=== PATIENT | female | born 2000 | race Caucasian/White ===

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

== ENCOUNTER 2020-02-04 09:56 | Emergency (ER) | payer OTHER, SELFPAY ==
[2020-02-04 10:02] VITALS: BP 120/66; PULSE 122; RESP 20; TEMP 37.2; O2SAT 100
--- NOTE | 2020-02-04 10:08 | ED.URI ---
HPI - URI/Sore Throat General Chief Complaint: Upper Respiratory Infection Stated Complaint: sore throat/ear pain Time Seen by Provider: 02/04/20 10:09 Source: patient and RN notes reviewed Mode of arrival: ambulatory Limitations: no limitations History of Present Illness HPI Narrative: 19-year-old female presents with concern for sore throat, chills, bilateral ear pain that started yesterday. Reports a history of strep infections. Reports taking Tylenol, however has difficulty swallowing pills because of her tonsil swelling. Denies any known sick contacts, denies loss of sense of taste or smell, nasal congestion, rhinorrhea MD elicited complaint: sore throat Related Data Home Medications Medication Instructions Recorded Confirmed escitalopram oxalate 10 mg PO DAILY 02/04/20 02/04/20 Allergies Allergy/AdvReac Type Severity Reaction Status Date / Time No Known Allergies Allergy Unknown Verified 02/04/20 10:09 Review of Systems Review of Systems: Narrative: CONSTITUTIONAL: Reports malaise, chills. Denies sweats, or fever. EYES: Denies visual changes, redness, or discharge. ENT: Denies rhinorrhea, congestion, sinus pain. Reports otalgia, swollen tonsils, and sore throat. CARDIOVASCULAR: Denies chest pain, palpitations, or edema. RESPIRATORY: Denies cough or dyspnea. GASTROINTESTINAL: Denies abdominal pain, nausea, vomiting, diarrhea SKIN: Denies rash or itching. MUSCULOSKELETAL: Denies myalgia. NEUROLOGIC: Denies headache. All systems reviewed & are unremarkable except as noted in HPI and below PMFSH Comments At time of signature, agree with nursing past medical, surgical, social and family history. There is no relevant family history pertinent to the presenting complaint Exam Narrative: Exam Narrative: GENERAL: Well-appearing, well-nourished, and in no acute distress. HEAD: Normocephalic EYES: PERRLA, conjunctivae clear ENT: Nares clear, turbinates e pink, no discharge. Mucous membranes moist. TM pearly nowak with sharp light reflex bilaterally; no tragal tenderness. Oropharynx erythematous without lesions. Tonsils enlarged, 3+, and without exudate, no drooling, no hoarseness, no trismus, uvula midline. NECK: Supple. No lymphadenopathy CHEST: Clear to auscultation, breath sounds equal. No wheezing, rhonchi, rales, or stridor. No respiratory distress, speaks in full sentences. HEART: Regular rate and rhythm. No murmur heard. SKIN: Warm, dry, no rash. NEURO: Alert and oriented x3. PSYCH: Normal mood and affect Course Course Emergency Course: Patient is aware of diagnosis, understands and agrees to treatment plan. Anticipatory guidance given. Patient agrees to follow-up as directed and is aware of reasons to seek care at the emergency department. Portions of this record may have been created with voice recognition software Vital Signs Vital signs: Vital Signs Temperature 99.0 F 02/04/20 10:02 Pulse Rate 122 H 02/04/20 10:02 Respiratory Rate 20 02/04/20 10:02 Blood Pressure 120/66 02/04/20 10:02 Pulse Oximetry 100 02/04/20 10:02 Temperature 99.0 F 02/04/20 10:02 Pulse Rate 122 H 02/04/20 10:02 Respiratory Rate 20 02/04/20 10:02 Blood Pressure 120/66 02/04/20 10:02 Pulse Oximetry 100 02/04/20 10:02 Reviewed. MDM - URI/Sore Throat MDM Narrative Medical decision making narrative: Differential diagnosis considered: Bains virus, strep pharyngitis, allergic rhinitis, upper respiratory tract infection, sinusitis, rhinosinusitis, nasopharyngitis. viral pharyngitis, otitis media, otitis externa, pneumonia, bronchitis, viral cough syndrome, viral syndrome, and influenza. Exam findings show no acute concerns or changes; patient is non-toxic appearing and is in no distress. Patient is appropriate for outpatient treatment and follow-up. Lab Data Attestation: I reviewed the patient's lab results. Labs: Strep Screen Positive Group A Strep *
[2020-02-04] MEDS: methylPREDNISolone SOD SUCC 125 MG VIAL IM (10:25)
== END 2020-02-04 10:46 | disposition home or self-care (01) ==
PROVIDERS: Emergency Provider Nurse Practitioner; PCP Pediatrics Adolescent Medicine
DX: J02.0 Streptococcal pharyngitis (principal)
CPT/HCPCS: 87880; 96372; 99213; G0463; J2930

== ENCOUNTER 2020-04-29 20:17 | Emergency (ER) | payer OTHER, SELFPAY ==
--- NOTE | ~2020-04-29 | CT_ITS ---
EXAMINATION: CT abdomen pelvis w con DATE: 04/29/2020 21:53 INDICATION: Left flank pain with fever TECHNIQUE: Computed tomography (CT) of the abdomen and pelvis was performed with 100 cc Omnipaque 350 intravenous contrast. The dose-length product was 208.05 mGy-cm. Automated exposure control and iter ative reconstruction technique were employed. COMPARISON: None. FINDINGS: Lung bases are unremarkable. Heart size is normal. No significant pleural or pericardial ef fusion. No significant vascular abnormality. No lymphadenopathy. There is mild thickening of the tonya shanti wall, although this could be due to underdistention. Cannot exclude gastritis. Moderate gas in th e colon. No evidence for obstruction. Fatty infiltration of the liver. There is splenomegaly. There is patchy hypoperfusion of the left kid moses, suspicious for pyelonephritis. There are bilateral ovarian cysts, largest in the left ovary lucius uring 3.4 cm. No significant free fluid. No free air. Gallbladder is present. No acute osseous abnorm ality. No acute osseous abnormality. IMPRESSION: 1. Patchy hypoperfusion of the left kidney, suspicious for pyelonephritis. 2: Bilateral ovarian cysts, largest in the left ovary measuring 3.4 cm. 3: Mild thickening of the gastric wall which may be due to underdistention or gastritis. 4: Splenomegaly. Reviewed, dictated and finalized at location A. ON PAPER INTERLEAFER IMPRESSION: 1. Patchy hypoperfusion of the left kidney, suspicious for pyelonephritis. 2: Bilateral ovarian cysts, largest in the left ovary measuring 3.4 cm. 3: Mild thickening of the gastric wall which may be due to underdistention or g astritis. 4: Splenomegaly.
[2020-04-29 20:30] VITALS: BP 110/70; PULSE 148; RESP 16; TEMP 38.7; O2SAT 100
--- NOTE | 2020-04-29 20:36 | ED.FEVER ---
HPI - Fever General Chief Complaint: Fever Stated Complaint: pinched nerve in back, fever Time Seen by Provider: 04/29/20 20:36 History of Present Illness HPI Narrative: Left low back pain for the past few days. Increasing severity, now severe and radiating to the LLQ and suprapubic region. She also developed a fever and nausea today. She does say that she feels mildly short of breath. No dysuria, hematuria, diarrhea, vaginal discharge, cough congestion. Related Data Home Medications Medication Instructions Recorded Confirmed escitalopram oxalate 10 mg PO DAILY 02/04/20 02/04/20 Allergies Allergy/AdvReac Type Severity Reaction Status Date / Time No Known Allergies Allergy Unknown Verified 04/29/20 20:51 Review of Systems Review of Systems: All systems reviewed & are unremarkable except as noted in HPI and below Constitutional: Constitutional: Reports chills, Reports fatigue and Reports fever(s) Eyes: Eyes: Reports no additional eye complaints ENT: Denies sore throat Cardiovascular: Cardiovascular: Denies chest pain Respiratory: Respiratory: Denies cough and Reports dyspnea Gastrointestinal: Gastrointestinal: Denies constipation, Denies diarrhea and Reports nausea Genitourinary: Genitourinary: Denies hematuria, Denies dysuria, Reports flank pain and Denies vaginal discharge Musculoskeletal: Musculoskeletal: Reports myalgias Neurologic: Denies dizziness and Denies weakness PMFSH Past Medical History Medical History (Updated 04/29/20 @ 23:47 by Austen Wallis MD) Healthy female adult Social History Social History (Updated 04/29/20 @ 21:32 by Austen Wallis MD) Smoking status: Never smoker Exam Const: General: alert and ill appearing acutely Nutritional Appearance: well nourished Orientation/consciousness: patient oriented x3 HENMT: Head: normal to inspection Neck: Neck: normal visual inspection Resp: Effort & Inspection: tachypneic Auscultation: clear to auscultation bilaterally Cardio: Rate: tachycardic Rhythm: regular rhythm GI: Inspection: non-distended GI Palp: Yes Soft to palpation, Yes Tenderness to palpation present (GI) (LLQ, suprapubic), Yes Guarding due to palpation present (GI), No Palpable mass present and No Rebound tenderness present Skin: General skin exam: normal color Neuro: General: patient oriented x3, moves all extremities, no meningeal signs, no focal motor deficits and CN's II-XI intact bilaterally Speech: normal speech Extrem: General: normal to inspection Course Vital Signs Vital signs: Vital Signs Temperature 38.7 C H 04/29/20 20:30 Pulse Rate 148 H 04/29/20 20:30 Respiratory Rate 16 04/29/20 20:30 Blood Pressure 110/70 04/29/20 20:30 Pulse Oximetry 100 04/29/20 20:30 Temperature 36.8 C 04/29/20 22:45 Pulse Rate 114 H 04/29/20 22:45 Respiratory Rate 24 H 04/29/20 22:45 Blood Pressure 108/70 04/29/20 22:45 Pulse Oximetry 100 04/29/20 22:45 MDM - Fever MDM Narrative Medical decision making narrative: She most likely has pyelonephritis. I will obtained CT and labs, and given Tylenol and fluids. CT suspicious for pyelonephritis. I discussed this with the patient and recommended admission. She said that she does not want to stay. Reevaluated after more fluids and toradol. Heart rate improved. Feeling much better. I think she is okay for discharge, although I did tell her that she may need to return if things are not improving. Differential Diagnosis Differential diagnosis: Likely gastroenteritis, community acquired pneumonia, pyelonephritis and sepsis Medical Records Attestation: I reviewed the patient's medical records. Lab Data Attestation: I reviewed the patient's lab results. Result diagrams: 04/29/20 21:01 04/29/20 20:59 Labs: Lab Results 04/29/20 04/29/20 04/29/20 Range/Units 20:59 20:59 21:01 WBC 15.5 H (4.5-10.0) K/mm3 RBC 4.61 (4.2-5.4) M/mm3 Hgb
[2020-04-29 20:49] VITALS: BP 117/80; PULSE 131; RESP 22; O2SAT 100
[2020-04-29] MEDS: SODIUM CHLORIDE 0.9% IV 1,000 ML 999 ML IV CONT ×2 (20:57→22:24)
[2020-04-29] MEDS: MORPHINE SULFATE (*CRX) 2 MG/ML INJ IV PUSH (20:58)
[2020-04-29 21:11] LABS: Basophils Percent Auto 0.1 % (0.2-1.2); Hematocrit 38.8 % (37.0-47.0); Hemoglobin 13.5 g/dL (12.0-15.0); Immature Granulocyte Absolute 0.08 K/mm3 (0.00-0.031); Immature Granulocyte Percent A 0.5 % (0-0.5); Lymphocytes Absolute Auto 0.64 K/mm3 (0.9-3.2); Lymphocytes Percent Auto 4.1 % (18.3-44.2); Mean Corpuscular HGB Conc 34.8 g/dl (32-36); Mean Corpuscular Hemoglobin 29.3 pg (26-34); Mean Corpuscular Volume 84.2 fl (80-100); Mean Platelet Volume 10.2 fl (7.4-10.4); Monocytes Absolute Auto 1.1 K/mm3 (0.1-0.6); Neutrophils Absolute Auto 13.7 K/mm3 (1.3-6.7); Neutrophils Percent Auto 88.3 % (45.5-73.1); Platelet Count Result 211 k/mm3 (150-375); Red Blood Count 4.61 M/mm3 (4.2-5.4); Red Cell Distribution Width 11.9 % (11.5-14.5); White Blood Count 15.5 K/mm3 (4.5-10.0)
[2020-04-29 21:29] LABS: Alanine Aminotransferase 10 U/L (4-35); Albumin Level 4.6 g/dL (3.7-5.6); Alkaline Phosphatase 59 U/L (45-116); Anion Gap 10 mmol/L (8-16); Aspartate Amino Transferase 20 U/L (14-36); Bilirubin,Total 0.6 mg/dL (0.2-1.3); Blood Urea Nitrogen 12 mg/dL (8-21); Carbon Dioxide 22 mmol/L (22-30); Chloride 102 mmol/L (98-107); Estimated CRCL calculation 73 ml/min; Estimated Glomerular Filt Rate > 60; Glucose 105 mg/dL (65-105); Potassium 3.6 mmol/L (3.4-5.0); Sodium 134 mmol/L (134-143)
--- NOTE | 2020-04-29 21:31 | PC.NURSE ---
RN at bedside to attempt straight cath. Minimal urine output, with blood present. UA and urine preg collected at this time.
[2020-04-29 21:33] VITALS: BP 104/69; PULSE 121; RESP 22; O2SAT 99
[2020-04-29 21:43] LABS: Bacteria Urine Trace /hpf; Mucus Urine Few /lpf; RBC Urine >75 /hpf (0-2); Squamous Epithelial Cell Urine Many /hpf (Few); WBC Clumps Urine Present /HPF; WBC Urine >75 /hpf
[2020-04-29 21:44] LABS: Add Urine Microscopic? YES; Appearance Urine Cloudy (Clear); Bilirubin Urine Negative (Negative); Blood Urine 3+ (Negative); Color Urine Yellow (Yellow); Glucose Urine UA Negative (Negative); Ketones Urine 2+ mg/dL (Negative); Leukocyte Esterase Ur Trace LEU/UL (Negative); Nitrate Urine Negative (Negative); Protein Urine 2+ mg/dL (Negative); Urobilinogen Urine Negative mg/dL (<2.0)
[2020-04-29 22:24] LABS: CRP 6.8 mg/dL (<1.0)
[2020-04-29 22:26] VITALS: BP 106/68; PULSE 113; RESP 22; O2SAT 99
[2020-04-29 22:45] VITALS: BP 108/70; PULSE 114; RESP 24; TEMP 36.8; O2SAT 100
[2020-04-29] MEDS: HYDROcodone/acetaminophen (*CRX) 5-325 MG TABLET 1 TAB PO (22:51)
[2020-04-29] MEDS: KETOROLAC 30 MG/ML VIAL (*BKC) IV PUSH (22:52)
[2020-04-30 00:24] VITALS: BP 103/75; PULSE 112; RESP 17; O2SAT 100
== END 2020-04-30 00:36 | disposition home or self-care (01) ==
PROVIDERS: Emergency Provider Emergency Medicine; PCP Pediatrics Adolescent Medicine
DX: N12 Tubulo-interstitial nephritis, not specified as acute or chronic (principal); R16.1 Splenomegaly, not elsewhere classified; N83.202 Unspecified ovarian cyst, left side; N83.201 Unspecified ovarian cyst, right side; R93.5 Abnormal findings on diagnostic imaging of other abdominal regions, including retroperitoneum
CPT/HCPCS: 36415; 51701; 74177; 80053; 81001; 81025; 83605; 85025; 86140; 87040; 87077; 87086; 87088; 87186; 96361; 96365; 96375; 99284; A9270; J0131; J0696; J1885; J2270; J7030; Q9967

== ENCOUNTER 2020-04-30 14:02 | Observation (INO) | payer OTHER, SELFPAY ==
[2020-04-30] VITALS (16 sets, daily range): BP systolic 90–117; BP diastolic 60–87; PULSE 103–133; RESP 15–229; TEMP 36.3–37.7; O2SAT 99–100; BMI 22.6
--- NOTE | ~2020-04-30 | XR_ITS ---
EXAMINATION: XR chest 1V portable 04/30/2020 15:58 INDICATION: Sepsis. Back pain. Shortness of breath. PROCEDURE: AP portable chest COMPARISON: 11/12/2014 FINDINGS: The lungs are clear. The cardiomediastinal silhouette is within normal limits. There are no pleural effusions. There is no pneumothorax suspected. IMPRESSION: 1: NO ACUTE CARDIOPULMONARY DISEASE. Reviewed, dictated and finalized at location A. TRICAL MANUFACTURING TECHNICIAN
[2020-04-30] MEDS: METOCLOPRAMIDE HCL INJ 10 MG/2 ML VIAL IV PUSH (14:47)
[2020-04-30] MEDS: SODIUM CHLORIDE 0.9% IV 1,000 ML 999 ML IV CONT ×2 (14:47→15:44)
[2020-04-30 14:54] LABS: Basophils Percent Auto 0.2 % (0.2-1.2); Eosinophils Absolute Auto 0.1 K/mm3 (0-0.3); Eosinophils Percent Auto 0.4 % (0-4.4); Hematocrit 33.2 % (37.0-47.0); Hemoglobin 11.5 g/dL (12.0-15.0); Immature Granulocyte Percent A 0.6 % (0-0.5); Lymphocytes Absolute Auto 1.16 K/mm3 (0.9-3.2); Lymphocytes Percent Auto 6.4 % (18.3-44.2); Mean Corpuscular HGB Conc 34.6 g/dl (32-36); Mean Corpuscular Hemoglobin 29.1 pg (26-34); Mean Corpuscular Volume 84.1 fl (80-100); Mean Platelet Volume 10.4 fl (7.4-10.4); Monocytes Absolute Auto 1.8 K/mm3 (0.1-0.6); Monocytes Percent Auto 9.7 % (2.6-8.5); Neutrophils Percent Auto 82.7 % (45.5-73.1); Platelet Count Result 162 k/mm3 (150-375); Red Blood Count 3.95 M/mm3 (4.2-5.4); Red Cell Distribution Width 11.6 % (11.5-14.5); White Blood Count 18.2 K/mm3 (4.5-10.0)
[2020-04-30 15:06] LABS: Alanine Aminotransferase 11 U/L (4-35); Albumin Level 3.9 g/dL (3.7-5.6); Alkaline Phosphatase 51 U/L (45-116); Anion Gap 13 mmol/L (8-16); Aspartate Amino Transferase 23 U/L (14-36); Bilirubin,Total 0.5 mg/dL (0.2-1.3); Blood Urea Nitrogen 11 mg/dL (8-21); Calcium 8.6 mg/dL (8.9-10.7); Carbon Dioxide 15 mmol/L (22-30); Chloride 105 mmol/L (98-107); Estimated Glomerular Filt Rate > 60; Glucose 100 mg/dL (65-105); Potassium 4.2 mmol/L (3.4-5.0); Sodium 133 mmol/L (134-143)
[2020-04-30 15:39] LABS: INR 1.3; Prothrombin Time 16.3 Seconds (11.1-14.7)
[2020-04-30 15:40] LABS: Partial Thromboplastin Time 36.5 SECONDS (22.3-36.8)
[2020-04-30 15:48] LABS: Lactic Acid Reflex 0.9 mmol/L (0.7-2.1)
--- NOTE | 2020-04-30 16:01 | ED.GENADULT ---
HPI - General Adult General Chief complaint: Nausea/Vomiting/Diarrhea Stated complaint: kidney infection Time Seen by Provider: 04/30/20 14:24 Source: patient Mode of arrival: ambulatory Limitations: no limitations History of Present Illness HPI narrative: Patient presents with chief complaint of worsening nausea and vomiting and left sided back pain. Patient was seen in the emergency department yesterday for the same symptoms but states they have now worsened. Patient was diagnosed with pyelonephritis and given antibiotics which she states she cannot take them as she has not been able to keep anything down including water on today. Patient reports feeling febrile but she has not documented her temperature. Patient reports back pain on the left side. Patient denies inability to urinate or pain with urination. Patient was offered admission on yesterday but did not want to stay in the hospital. Patient denies having a history of kidney stones or urinary tract infections. Patient denies having any chronic medical conditions. Related Data Home Medications Medication Instructions Recorded Confirmed escitalopram oxalate 10 mg PO DAILY 02/04/20 04/30/20 Allergies Allergy/AdvReac Type Severity Reaction Status Date / Time No Known Allergies Allergy Unknown Verified 04/29/20 20:51 Review of Systems Review of Systems: Narrative: CONSTITUTIONAL: Reports feeling feverish and chills and fatigue EYES: Denies visual changes, redness, or discharge. ENT: Denies rhinorrhea, congestion, sore throat, or otalgia. CARDIOVASCULAR: Denies chest pain, palpitations, or edema. RESPIRATORY: Denies cough or dyspnea. GASTROINTESTINAL: Reports nausea and vomiting denies diarrhea. GENITOURINARY: Denies dysuria or hematuria. SKIN: Denies rash or itching. MUSCULOSKELETAL: Reports left-sided back pain denies joint pain, or myalgia. NEUROLOGIC: Denies headache, numbness, dizziness, or weakness. PSYCHIATRIC: Denies anxiety or depression. [facility] Past Medical History Medical History (Updated 04/30/20 @ 18:39 by Walter Jefferson PA-C) Healthy female adult Social History Social History (Updated 04/29/20 @ 21:32 by Austen Wallis MD) Smoking status: Current every day smoker Tobacco type: e-cigarettes/vaping Second hand tobacco smoke exposure: Yes Alcohol intake: never Substance use: current Substance use type: marijuana Gender identity (if verbalized by the patient): Female Sexual Orientation (if Verbalized by the Patient): Straight or Heterosexual Spiritual care concerns: No Exam Narrative: Exam Narrative: GENERAL: Well-appearing, well-nourished. Patient appears ill-slightly diaphoretic. HEAD: Normocephalic, atraumatic. EYES: PERRLA and EOMI. ENT: Nares clear, no rhinorrhea or epistaxis. Mucous membranes mild- mod dry. Oropharynx without tonsillar hypertrophy exudate or other lesions. Bilateral TMs pearly nowak nonbulging NECK: Supple. No adenopathy or masses. CHEST: Clear to auscultation. No respiratory distress. No wheezes rales or rhonchi HEART: Tachycardia with regular rhythm. No murmur heard. Normal peripheral pulses. ABDOMEN: Soft, nontender, nondistended, normal active bowel sounds. Patient will not allow back or CVA exam. EXTREMITIES: Normal range of motion. No edema. SKIN: Warm, dry, no rash. NEURO: No focal deficits. Alert and oriented x3. PSYCH: Normal mood and affect. Course Vital Signs Vital signs: Vital Signs Temperature 100 F H 04/30/20 14:23 Pulse Rate 133 H 04/30/20 14:23 Respiratory Rate 34 H 04/30/20 14:23 Blood Pressure 115/87 04/30/20 14:23 Pulse Oximetry 100 04/30/20 14:23 Temperature 100 F H 04/30/20 14:23 Pulse Rate 113 H 04/30/20 17:00 Respiratory Rate 21 H 04/30/20 17:00 Blood Pressure 93/68 L 04/30/20 17:00 Pulse Oximetry 100 04/30/20 17:00 Medical Decision Making [facility] Narrative Medical decision making narrative: Patient's white blood cell count i
[2020-04-30] MEDS: HYDROmorphone HCL INJ (*CRX) 1 MG/ML SYR 0.5 MG IV PUSH (16:24)
--- NOTE | 2020-04-30 16:30 | PM.IMHP ---
H&P: HPI History of Present Illness Date/Time: 04/30/20 19:00 Chief Complaint: Nausea and vomiting. Narrative: This is a 19-year-old female with history of urinary tract infections who presented to the emergency department earlier this afternoon with complaints of worsening nausea and vomiting. For the last several days she has had an aching discomfort in her left lower back reading somewhat into the suprapubic region for which she was seen in the emergency department last evening. Urinalysis at that time was consistent with UTI and a CT of the abdomen and pelvis demonstrated findings of left-sided pyelonephritis. She was feeling better after IV fluids and she was able to be discharged home after receiving a dose of IV antibiotics. Unfortunately she continues to have fever, nausea, and vomiting and has not been able a hold down any food for a couple of days and thus she returned today. She is being admitted in this setting for further care. No known history of multidrug resistant organisms. She denies sinus congestion, rhinorrhea, otalgia, odynophagia, and diarrhea. No vaginal discharge or concerns for STIs. Review of Systems Review of Systems: Narrative: Twelve systems were reviewed with pertinent positives and negatives as per HPI. No exposure to those positive for COVID-19. She has felt mildly short of breath and has had a racing heart since feeling sick. Tylenol has not provided her with much benefit regards to discomfort. Last menstrual period was about a week and half ago. Except as documented, all other systems were reviewed and are negative. [facility] Past Medical History Medical History (Updated 04/30/20 @ 20:45 by Maria M Coffman PA-C) Nicotine dependence due to vaping tobacco product Urinary tract infection Surgical History Surgical History (Updated 04/30/20 @ 20:42 by Maria M Coffman PA-C) History of tympanostomy tube placement Family History Family History (Updated 04/30/20 @ 20:43 by Maria M Coffman PA-C) Father Diabetes mellitus Seizure disorder Sibling Autism Social History Social History (Updated 04/30/20 @ 20:44 by Maria M Coffman PA-C) Social History: Surrogate decision maker: Pham Scruggs, significant other. Code status: Full code. Smoking status: Current every day smoker Tobacco type: e-cigarettes/vaping Second hand tobacco smoke exposure: Yes Alcohol intake: never Substance use: current Substance use type: marijuana Additional living arrangements comments: Resides in [place] with her significant other and his child. 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 Gender identity (if verbalized by the patient): Female Sexual Orientation (if Verbalized by the Patient): Straight or Heterosexual Spiritual care concerns: No Meds Home Medications and Allergies Home Medications Medication Instructions Recorded Confirmed Type escitalopram oxalate 10 mg PO DAILY 02/04/20 04/30/20 History penicillin V potassium 500 mg PO Q12H 10 Days #20 tablet 02/04/20 04/30/20 Rx cefdinir 300 mg PO Q12H #14 cap 04/29/20 04/30/20 Rx hydrocodone-acetaminophen 1 tablet PO Q6H PRN #5 tablet 04/29/20 04/30/20 Rx ondansetron HCl [Zofran] 4 mg PO Q6H PRN #10 tablet 04/29/20 04/30/20 Rx Allergies Allergy/AdvReac Type Severity Reaction Status Date / Time No Known Allergies Allergy Unknown Verified 04/29/20 20:51 Vital Signs Vital Signs - 24 hr 04/30/20 14:23 04/30/20 14:51 04/30/20 15:00 Temperature 100 F H Pulse Rate 133 H 126 H 122 H Respiratory Rate 34 H 31 H 36 H Blood Pressure 115/87 104/69 Pulse Oximetry 100 100 100 04/30/20 15:01 04/30/20 15:15 04/30/20 15:40 Temperature Pulse Rate 120 H 132 H 110 H Respiratory Rate 33 H 229 H 20 Blood Pressure 103/64 Pulse Oximetry 100 100 100 04/30/20 15:57 04/30/20 16:09 04/30/20 16:15 Temperature Pulse Rate 119 H 116 H 110 H Respirato
[2020-04-30 16:42] LABS: CRP 21.4 mg/dL (<1.0)
--- NOTE | 2020-04-30 18:10 | ADMGEN ---
This patient, Kirsten Condon, was admitted to 3 Med Surg Room 302-01. Patient/family oriented to hospital policies and general routines including ID bracelet, bed and alarms, visiting hours, pain management, procedures, bathroom and other care routines, personal items, smoking policy, room service/diet, and visiting hours. Information on how to activate the Rapid Response Team has been discussed. Patient/Family are encouraged to report perceived risks to care and to ask questions if they do not understand what they are told or what they should do.
[2020-04-30] MEDS: ONDANSETRON INJ 4 MG/2 ML VIAL IV PUSH (20:55)
[2020-04-30 21:44] LABS: Anion Gap 9 mmol/L (8-16); Blood Urea Nitrogen 9 mg/dL (8-21); Carbon Dioxide 18 mmol/L (22-30); Chloride 110 mmol/L (98-107); Estimated CRCL calculation 106 ml/min; Estimated Glomerular Filt Rate > 60; Glucose 92 mg/dL (65-105); Magnesium 1.7 mg/dL (1.6-2.3); Potassium 4.1 mmol/L (3.4-5.0); Sodium 137 mmol/L (134-143)
[2020-04-30] MEDS: SODIUM CHLORIDE 0.9% IV 1,000 ML 100 ML IV CONT (22:42)
[2020-05-01 05:36] VITALS: BP 113/63; PULSE 125; RESP 18; TEMP 36.8; O2SAT 100
[2020-05-01 06:10] LABS: Hematocrit 31.3 % (37.0-47.0); Hemoglobin 10.6 g/dL (12.0-15.0); Mean Corpuscular HGB Conc 33.9 g/dl (32-36); Mean Corpuscular Hemoglobin 28.9 pg (26-34); Mean Corpuscular Volume 85.3 fl (80-100); Mean Platelet Volume 10.8 fl (7.4-10.4); Platelet Count Result 155 k/mm3 (150-375); Red Blood Count 3.67 M/mm3 (4.2-5.4); Red Cell Distribution Width 11.8 % (11.5-14.5); White Blood Count 12.8 K/mm3 (4.5-10.0)
[2020-05-01 06:28] LABS: Alanine Aminotransferase 10 U/L (4-35); Albumin Level 3.5 g/dL (3.7-5.6); Alkaline Phosphatase 46 U/L (45-116); Anion Gap 13 mmol/L (8-16); Aspartate Amino Transferase 23 U/L (14-36); Bilirubin,Total 0.3 mg/dL (0.2-1.3); Blood Urea Nitrogen 8 mg/dL (8-21); Calcium 8.6 mg/dL (8.9-10.7); Carbon Dioxide 14 mmol/L (22-30); Chloride 109 mmol/L (98-107); Estimated CRCL calculation 106 ml/min; Estimated Glomerular Filt Rate > 60; Glucose 82 mg/dL (65-105); Sodium 136 mmol/L (134-143)
--- NOTE | 2020-05-01 08:03 | ECG_ITS ---
Measurements Intervals Crane Rate: 113 P: 72 WI: 115 QRS: 74 QRSD: 78 T: -9 QT: 308 QTc: 423 Interpretive Statements SINUS TACHYCARDIA WITH SHORT WI INTERVAL NONSPECIFIC ST & T-WAVE ABNORMALITY- ANTEROLAT/INF LEADS ABNORMAL ECG Electronically Signed On 05-01-2020 9:07:31 SCOOPING MACHINE TENDER by Bharat Fletcher D.O.
[2020-05-01] MEDS: ESCITALOPRAM OXALATE 10 MG TABLET PO (08:15)
[2020-05-01 09:17] VITALS: O2SAT 99
[2020-05-01] MEDS: ONDANSETRON INJ 4 MG/2 ML VIAL IV PUSH (10:17)
[2020-05-01] MEDS: SODIUM CHLORIDE 0.9% IV 1,000 ML 100 ML IV CONT (10:21)
--- NOTE | 2020-05-01 13:16 | PM.IMPN ---
Progress Note: A&P Assessment and Plan (1) Sepsis: Code(s): A41.9 - Sepsis, unspecified organism Status: Acute Assessment and Plan: Supported by leukocytosis and tachycardia, both of which are improving -UTI/pyelonephritis appears to be the source -Continue ceftriaxone, await new blood cultures -Blood cultures from previous ER stay have NGTD -CO2 decreased, likely due to hyperventilation and not in the setting of severe infection/kidney disfunction. -Anion gap normal, lactic normal on admission -d/c in 1-2 days on oral abx when she is able to tolerate a diet and preliminary blood cultures have come back (2) Pyelonephritis: Code(s): N12 - Tubulo-interstitial nephritis, not specified as acute or chronic Status: Acute Assessment and Plan: Diagnosed with left-sided pyelonephritis -Continue ceftriaxone, urine cx growing ecoli (3) Dehydration: Code(s): E86.0 - Dehydration Status: Acute Assessment and Plan: Improving. Continue IV fluids due to vomiting with breakfast (4) Nicotine dependence due to vaping tobacco product: Code(s): F17.290 - Nicotine dependence, other tobacco product, uncomplicated Status: Acute Assessment and Plan: Recommend cessation of tobacco products including vaping. (5) Ovarian cyst: Code(s): N83.209 - Unspecified ovarian cyst, unspecified side Status: Acute Assessment and Plan: Likely due to menstrual cycle -Could also be causing the left sided pain -Follow up with pcp or MERCHANDISING LEAD at discharge Time Spent With Patient Time with patient: 25 - 35 minutes Subjective Date/time seen: 05/01/20 13:16 Interval history: Pt is a 19-year-old female here for pyelonephritis. Patient was seen today with visitor at bedside. Patient was seen today and states she is still unable to eat as she is very nauseated and has back pain. She threw up her breakfast today but was able to hold down a popsicle. She says she has been upset that she has been hospitalized and is hyperventilating and breathing fast. We reviewed breathing techniques. Pt denies fevers, chills, nightsweats, constipation, diarrhea, chest pain, sob, or abdominal pain. We dsicussed ways to prevent UTIs and she says she doesn't have UTIs very often. Review of Systems Review of Systems: All systems reviewed & are unremarkable except as noted in HPI and below Exam Narrative: Exam Narrative: General: Well developed well nourished patient in NAD HEENT: normocephalic Neck: supple Neuro: Alert and oriented x4 CV:slightly tachycardic on exam, 118. No murmurs. EKG reviewed, no significant abnormalities Resp:CTA but start hyperventilating when discussing plan of care Abd: Soft, non distended. Pain to palpation in the LLQ. CVA tenderness on the left flank. Positive bowel sounds Extremities: No swelling, erythema, or pain to palpation. Objective Data Vital Signs Vital Signs: Vital Signs - 24 hr 04/30/20 14:23 04/30/20 14:51 04/30/20 15:00 Temperature 100 F H Pulse Rate 133 H 126 H 122 H Respiratory Rate 34 H 31 H 36 H Blood Pressure 115/87 104/69 Pulse Oximetry 100 100 100 04/30/20 15:01 04/30/20 15:15 04/30/20 15:40 Temperature Pulse Rate 120 H 132 H 110 H Respiratory Rate 33 H 229 H 20 Blood Pressure 103/64 Pulse Oximetry 100 100 100 04/30/20 15:57 04/30/20 16:09 04/30/20 16:15 Temperature Pulse Rate 119 H 116 H 110 H Respiratory Rate 24 H 39 H 27 H Blood Pressure 97/60 L Pulse Oximetry 100 100 100 04/30/20 16:28 04/30/20 16:30 04/30/20 16:45 Temperature Pulse Rate 108 H 107 H 127 H Respiratory Rate 21 H 15 27 H Blood Pressure 96/71 L 90/61 L Pulse Oximetry 100 100 100 04/30/20 16:51 04/30/20 16:53 04/30/20 17:00 Temperature Pulse Rate 103 H 113 H Respiratory Rate 20 21 H Blood Pressure 90/61 L 93/68 L Pulse Oximetry 99 100 04/30/20 22:00 05/01/20 05:36 05/01/20 09:17 Te
[2020-05-01 14:00] VITALS: BP 116/60; PULSE 90; RESP 16; TEMP 36.6; O2SAT 100
[2020-05-01 14:05] LABS: Monoscreen Negative (Negative); Negative Monotest Control Negative (Negative); Positive Monotest Control Positive (Positive)
[2020-05-01] MEDS: PANTOPRAZOLE 40 MG TABLET PO (14:24)
[2020-05-01 15:08] LABS: Anion Gap 14 mmol/L (8-16); Blood Urea Nitrogen 8 mg/dL (8-21); Calcium 8.9 mg/dL (8.9-10.7); Carbon Dioxide 11 mmol/L (22-30); Chloride 112 mmol/L (98-107); Estimated CRCL calculation 106 ml/min; Estimated Glomerular Filt Rate > 60; Glucose 89 mg/dL (65-105); Potassium 4.4 mmol/L (3.4-5.0); Sodium 137 mmol/L (134-143)
[2020-05-01] MEDS: LACTATED RINGERS 1,000 ML 100 ML IV CONT (16:19)
[2020-05-01 20:00] VITALS: PULSE 98; RESP 18; O2SAT 100
[2020-05-01 21:56] VITALS: BP 126/83; PULSE 98; RESP 18; TEMP 36.8; O2SAT 100
[2020-05-02] MEDS: LACTATED RINGERS 1,000 ML 100 ML IV CONT (03:19)
[2020-05-02 05:35] VITALS: BP 123/57; PULSE 87; RESP 18; TEMP 36.7; O2SAT 100
[2020-05-02 06:04] LABS: Basophils Percent Auto 0.3 % (0.2-1.2); Eosinophils Percent Auto 0.6 % (0-4.4); Hematocrit 34.3 % (37.0-47.0); Hemoglobin 11.8 g/dL (12.0-15.0); Immature Granulocyte Absolute 0.03 K/mm3 (0.00-0.031); Immature Granulocyte Percent A 0.4 % (0-0.5); Lymphocytes Absolute Auto 1.41 K/mm3 (0.9-3.2); Lymphocytes Percent Auto 19.4 % (18.3-44.2); Mean Corpuscular HGB Conc 34.4 g/dl (32-36); Mean Corpuscular Hemoglobin 28.9 pg (26-34); Mean Corpuscular Volume 84.1 fl (80-100); Mean Platelet Volume 10.7 fl (7.4-10.4); Monocytes Absolute Auto 0.9 K/mm3 (0.1-0.6); Monocytes Percent Auto 12.7 % (2.6-8.5); Neutrophils Absolute Auto 4.8 K/mm3 (1.3-6.7); Neutrophils Percent Auto 66.6 % (45.5-73.1); Platelet Count Result 161 k/mm3 (150-375); Red Blood Count 4.08 M/mm3 (4.2-5.4); Red Cell Distribution Width 11.8 % (11.5-14.5); White Blood Count 7.3 K/mm3 (4.5-10.0)
[2020-05-02 06:29] LABS: Anion Gap 10 mmol/L (8-16); Blood Urea Nitrogen 9 mg/dL (8-21); Calcium 8.9 mg/dL (8.9-10.7); Carbon Dioxide 18 mmol/L (22-30); Chloride 109 mmol/L (98-107); Estimated CRCL calculation 92 ml/min; Estimated Glomerular Filt Rate > 60; Glucose 82 mg/dL (65-105); Potassium 3.7 mmol/L (3.4-5.0); Sodium 137 mmol/L (134-143)
[2020-05-02] MEDS: ESCITALOPRAM OXALATE 10 MG TABLET PO (08:50)
[2020-05-02] MEDS: PANTOPRAZOLE 40 MG TABLET PO (08:50)
--- NOTE | 2020-05-02 11:59 | PM.DS ---
DS: Admitting Diagnosis Admitting Diagnosis Admitting Diagnosis: Pyelonephritis DS: Discharge Diagnosis Discharge Diagnosis (1) Sepsis: Code(s): A41.9 - Sepsis, unspecified organism Status: Acute Assessment and Plan: Present on admission and supported by leukocytosis and tachycardia with source of infection being pyelonephritis. She was treated with IV Ceftriaxone and will continue with Cefdinir to complete a total of 14 days of antibiotic therapy. Blood cultures negative. Lactic normal on admission. CO2 decreased likely due to hyperventilation and not felt to be related to infection/kidney dysfunction, which improved. Leukocytosis and tachycardia resolved. (2) Pyelonephritis: Code(s): N12 - Tubulo-interstitial nephritis, not specified as acute or chronic Status: Acute Assessment and Plan: Diagnosed with left-sided pyelonephritis based on clinical findings and CT a/p which showed patchy hypoperfusion of left kidney consistent with pyelonephritis. Urine culture grew 50-100,000 CFU E. coli. Continue PO Cefdinir to complete 14 days of antibiotic therapy. (3) Dehydration: Code(s): E86.0 - Dehydration Status: Acute Assessment and Plan: Improving with IV fluid rehydration (4) Nicotine dependence due to vaping tobacco product: Code(s): F17.290 - Nicotine dependence, other tobacco product, uncomplicated Status: Acute Assessment and Plan: She was educated on smoking cessation including vaping for 3 minutes. (5) Ovarian cyst: Code(s): N83.209 - Unspecified ovarian cyst, unspecified side Status: Acute Assessment and Plan: Likely due to menstrual cycle. CT showed bilateral ovarian cysts, largest in left ovary measuring 3.4 cm. Follow up with OCCUPATIONAL SAFETY SPECIALIST or PCP. DS: Summary Hospital Course Reason for hospitalization: Pyelonephritis Hospital Course: Date of admission: 04/30/2020 Date of discharge: 05/02/2020 Kirsten Condon is a 19-year-old female with history of urinary tract infections and nicotine dependence to to vaping who presented to the emergency department on 04/30/2020 with complaints of nausea/vomiting and left-sided back pain. She had been in the emergency department 1 day prior and diagnosed with pyelonephritis. She was started on p.o. antibiotics, but unfortunately her nausea/vomiting persisted and she was not able to keep down food or liquids. Upon presentation, she was tachycardic in the 130s, temperature of 100?, additional vital signs stable, WBC 18.2, H&H slightly decreased, electrolytes stable, and lactic 0.9. She was admitted to the hospitalist service for further evaluation and management. Please see above for further details. She was rehydrated with IV fluids and treated with IV antibiotics. She demonstrated significant improvement will continue with p.o. antibiotics as an outpatient. Given her overall improvement, she was determined to no longer require inpatient care and felt to be stable for discharge. She was comfortable with return home. We discussed worrisome signs and symptoms for which to return and she was educated on her medications. She was discharged hemodynamically stable condition on 05/02/2020. Time spent discussing smoking cessation with patient: 3 to 10 minutes Status at Discharge Functional status at discharge: independent ambulation Overall status at discharge: patient is back to baseline Time Spent with Patient Time attestation: Total time spent providing and/or coordinating discharge services: 45 minutes Time spent: Greater than 30 minutes Exam Narrative: Exam Narrative: Ms. Condon is a well-nourished, well-appearing 19-year-old female who is lying supine in bed. She appears comfortable and is in NARD. Neuro: awake, alert and oriented x4, speech clear, no focal neuro deficits noted HEENMT: normocephalic, atraumatic, EOMI, sclerae anicteric, moist oral mucosa, tongue midline, n
== END 2020-05-02 12:55 | disposition home or self-care (01) ==
LOC: ANHED 16:20 → ANH3MEDSUR 16:42
PROVIDERS: Physician Assistant; Admitting Provider Family Medicine; Emergency Provider Emergency Medicine; PCP Pediatrics Adolescent Medicine; Visit Provider Physician Assistant
DX: A41.9 Sepsis, unspecified organism (principal); N12 Tubulo-interstitial nephritis, not specified as acute or chronic; B96.20 Unspecified Escherichia coli [E. coli] as the cause of diseases classified elsewhere; E86.0 Dehydration; F17.290 Nicotine dependence, other tobacco product, uncomplicated; N83.209 Unspecified ovarian cyst, unspecified side
CPT/HCPCS: 36415; 71045; 80048; 80053; 83605; 83735; 85025; 85027; 85610; 85730; 86140; 86308; 87040; 93005; 96361; 96365; 96367; 96375; 99285; A9270; G0378; G0379; J0131; J0696; J1170; J2405; J2765; J7030; J7120

== ENCOUNTER 2020-08-21 12:15 | Emergency (ER) | payer OTHER, SELFPAY ==
[2020-08-21 12:18] VITALS: BP 102/71; PULSE 77; RESP 16; TEMP 36.5; O2SAT 100
[2020-08-21 12:35] LABS: Basophils Percent Auto 0.2 % (0.2-1.2); Eosinophils Percent Auto 0.4 % (0-4.4); Hemoglobin 12.5 g/dL (12.0-15.0); Immature Granulocyte Absolute 0.03 K/mm3 (0.00-0.031); Immature Granulocyte Percent A 0.3 % (0-0.5); Lymphocytes Absolute Auto 1.62 K/mm3 (0.9-3.2); Lymphocytes Percent Auto 16.8 % (18.3-44.2); Mean Corpuscular HGB Conc 33.8 g/dl (32-36); Mean Corpuscular Hemoglobin 28.3 pg (26-34); Mean Corpuscular Volume 83.9 fl (80-100); Mean Platelet Volume 10.5 fl (7.4-10.4); Monocytes Absolute Auto 0.5 K/mm3 (0.1-0.6); Monocytes Percent Auto 4.8 % (2.6-8.5); Neutrophils Absolute Auto 7.5 K/mm3 (1.3-6.7); Neutrophils Percent Auto 77.5 % (45.5-73.1); Platelet Count Result 222 k/mm3 (150-375); Red Blood Count 4.41 M/mm3 (4.2-5.4); Red Cell Distribution Width 12.4 % (11.5-14.5); White Blood Count 9.7 K/mm3 (4.5-10.0)
[2020-08-21] MEDS: SODIUM CHLORIDE 0.9% IV 1,000 ML 999 ML IV CONT (12:41)
[2020-08-21 12:42] LABS: Add Urine Microscopic? YES; Amorphous Sediment Urine Few; Appearance Urine Cloudy (Clear); Bacteria Urine Trace /hpf; Bilirubin Urine Negative (Negative); Blood Urine Negative (Negative); Color Urine Yellow (Yellow); Glucose Urine UA Negative (Negative); Ketones Urine 1+ mg/dL (Negative); Leukocyte Esterase Ur 3+ LEU/UL (Negative); Mucus Urine Few /lpf; Nitrate Urine Negative (Negative); Protein Urine 2+ mg/dL (Negative); Specific Grav Ur 1.018 (1.001-1.035); Squamous Epithelial Cell Urine Many /hpf (Few); Urobilinogen Urine Negative mg/dL (<2.0); WBC Urine 31-50 /hpf
[2020-08-21 12:45] LABS: Alanine Aminotransferase 33 U/L (4-35); Albumin Level 4.6 g/dL (3.5-5.1); Alkaline Phosphatase 42 U/L (38-126); Anion Gap 11 mmol/L (8-16); Aspartate Amino Transferase 23 U/L (14-36); Bilirubin,Total 0.2 mg/dL (0.2-1.3); Blood Urea Nitrogen 5 mg/dL (7-17); Calcium 9.4 mg/dL (8.4-10.2); Carbon Dioxide 21 mmol/L (22-30); Chloride 106 mmol/L (98-107); Estimated CRCL calculation 124 ml/min; Estimated Glomerular Filt Rate > 60; Glucose 97 mg/dL (65-105); Lipase 111 U/L (23-300); Potassium 3.8 mmol/L (3.4-5.0); Sodium 138 mmol/L (137-145)
--- NOTE | 2020-08-21 13:04 | ED.FEMALEGU ---
HPI - Female Genitourinary General Chief complaint: Nausea/Vomiting/Diarrhea Stated complaint: Nausea/vomiting/8 weeks Time Seen by Provider: 08/21/20 12:34 Source: patient Mode of arrival: ambulatory Limitations: no limitations History of Present Illness HPI Narrative: Patient is a 20-year-old female complaining of nausea and vomiting that started today. Patient states that she is 8 weeks , has had care. Patient denies any abdominal pain, pelvic pain, vaginal bleeding, vaginal discharge, fever, chills or urinary symptoms. Related Data Home Medications Medication Instructions Recorded Confirmed PNV no.[id number] tablet PO 08/21/20 [ Gummies] metoclopramide HCl 08/21/20 Allergies Allergy/AdvReac Type Severity Reaction Status Date / Time No Known Allergies Allergy Unknown Verified 08/21/20 12:26 Review of Systems Review of Systems: All systems reviewed & are unremarkable except as noted in HPI and below Constitutional: Constitutional: Denies body ache(s), Denies chills, Denies excessive sweating, Denies fatigue, Denies fever(s), Denies headache(s), Denies lethargy, Denies malaise, Denies weakness and Denies weight loss Eyes: Eyes: Denies blurry vision, Denies change in vision and Denies loss of vision ENT: Denies dizziness, Denies ear discharge, Denies headache(s), Denies lip swelling, Denies epistaxis, Denies nasal congestion, Denies neck pain, Denies throat swelling and Denies tongue swelling Cardiovascular: Cardiovascular: Denies chest pain, Denies chest pain at rest, Denies chest pain with activity, Denies diaphoresis, Denies rapid heart rate, Denies edema, Denies irregular heart rhythm, Denies lightheadedness, Denies palpitations, Denies dyspnea and Denies dyspnea on exertion Respiratory: Respiratory: Denies chest congestion, Denies cough, Denies hemoptysis, Denies dyspnea and Denies dyspnea on exertion Gastrointestinal: Gastrointestinal: Denies abdominal pain, Denies melena, Denies hematochezia, Denies diarrhea, Reports nausea, Reports vomiting and Denies hematemesis Musculoskeletal: Musculoskeletal: Denies abnormal gait, Denies deformity, Denies joint swelling, Denies limited range of motion, Denies neck pain and Denies numbness Neurologic: Denies Abnormal speech present, Denies abnormal gait, Denies confusion, Denies dizziness, Denies headache(s), Denies focal weakness, Denies loss of vision, Denies numbness, Denies Other visual disturbances, Denies Sensory deficit (Neuro) and Denies weakness Psychiatric: Psychiatric: Denies confusion, Denies depression, Denies auditory hallucinations, Denies homicidal ideation and Denies suicidal ideation Endocrine: Endocrine: Denies cold intolerance, Denies excessive sweating, Denies fatigue, Denies heat intolerance and Denies palpitations Hematologic/Lymphatic: Hematologic/Lymphatic: Denies easy bleeding and Denies easy bruising Allergic/Immunologic: Allergic/Immunologic: Denies lip swelling, Denies throat swelling and Denies tongue swelling PMFSH Past Medical History Medical History Nicotine dependence due to vaping tobacco product Urinary tract infection Surgical History Surgical History History of tympanostomy tube placement Family History Family History Father Diabetes mellitus Seizure disorder Sibling Autism Social History Social History Social History: Surrogate decision maker: Pham Scruggs, significant other. Code status: Full code. Smoking status: Current every day smoker Tobacco type: e-cigarettes/vaping Second hand tobacco smoke exposure: Yes Alcohol intake: never Substance use: current Substance use type: marijuana Additional living arrangements comments: Resides in
[2020-08-21] MEDS: PROMETHAZINE HCL 25 MG/ML AMPUL 12.5 MG IV PUSH (13:28)
[2020-08-21 14:19] VITALS: BP 110/78; PULSE 69; RESP 18; O2SAT 100
== END 2020-08-21 14:20 | disposition home or self-care (01) ==
PROVIDERS: Emergency Medicine; Emergency Provider Emergency Medicine; PCP Pediatrics Adolescent Medicine
DX: O23.41 Unspecified infection of urinary tract in pregnancy, first trimester (principal); O21.0 Mild hyperemesis gravidarum; Z3A.08 8 weeks gestation of pregnancy
CPT/HCPCS: 36415; 80053; 81001; 81025; 83690; 84702; 85025; 87077; 87086; 87088; 87186; 96361; 96374; 99284; J2550; J7030

== ENCOUNTER 2021-01-31 12:21 | Observation (INO) | payer OTHER, SELFPAY ==
[2021-01-31] VITALS (10 sets, daily range): BP systolic 117; BP diastolic 72; PULSE 40–112; RESP 20; O2SAT 80–100; BMI 25.6
--- NOTE | 2021-01-31 12:50 | OBADM ---
This patient, Kirsten Condon, admitted to the OB room OB Post 113 for observation. Patient/family oriented to hospital policies and general routines including ID bracelet, bed and alarms, pain management, procedures, bathroom and other care routines, personal items, smoking policy, room service/diet, call light and visiting hours. Patient/Family are encouraged to report perceived risks to care and to ask questions if they do not understand what they are told or what they should do.
--- NOTE | 2021-01-31 13:20 | PC.NURSE ---
Pt ambulates to OB with complaints of contractions that started last night that were so painful she passed out. She states she is not breathing right , back pain, dizziness and had a UTI before she was , then admitted for dehydration earlier in this . This morning pt started her day quickly going from the bed to washing the dishes within five min without eating food, minimal fluid intake and became dizzy. RN encouraged PO hydration. After 30 min pt had minimal fluid intake and had been on her phone. RN encouraged PO hydration.
[2021-01-31 13:32] LABS: Add Urine Microscopic? YES; Appearance Urine Clear (Clear); Bilirubin Urine Negative (Negative); Blood Urine Negative (Negative); Color Urine Yellow (Yellow); Glucose Urine UA Negative (Negative); Ketones Urine Trace mg/dL (Negative); Leukocyte Esterase Ur Negative LEU/UL (NEGATIVE); Mucus Urine Rare /lpf; Nitrate Urine Negative (Negative); Protein Urine Negative (Negative); RBC Urine 0-2 /hpf (0-2); Specific Grav Ur 1.017 (1.001-1.035); Squamous Epithelial Cell Urine Many /hpf (Few); Urobilinogen Urine Negative mg/dL (<2.0); WBC Urine 0-3 /hpf (0-3)
--- NOTE | 2021-01-31 14:00 | PC.NURSE ---
Pt states she drank the water too fast and threw it up. Discussed the option of putting in an IV for fluid, nausea medication and tylenol. Pt declines everything and opts to continue drinking fluid. Pt states she hasn't eaten today and would like some crackers to eat and declines other food at this time. Pt feels the urged to have a bowel movement. She had a BM earlier today and responds that they are normal not loose or constipated.
--- NOTE | 2021-01-31 14:27 | PC.NURSE ---
1424 pt sat straight up to eat a variety of snacks. Abdomen remains soft.
--- NOTE | 2021-02-03 12:05 | P.PNOB_ITS ---
OB - Triage/Final Diagnosis Visit Information Comments/Additional reasons for admission: I have assessed the risk for this patient, Kirsten Condon, and determined that she would benefit from observation care. Evaluation Laboratory results: Laboratory Tests 01/31/21 13:15 Urine Color Yellow Urine Appearance Clear Urine pH 7.0 Ur Specific [place] 1.017 Urine Protein Negative Urine Glucose (UA) Negative Urine Ketones Trace Ur Blood (Man) Negative Urine Nitrate Negative Urine Bilirubin Negative Urine Urobilinogen Negative Ur Leukocyte Esterase Negative Urine RBC 0-2 Urine WBC 0-3 Ur Squamous Epith Cells Many H Urine Mucus Rare Final Diagnosis (1) Abdominal pain affecting : Code(s): O26.899 - Other specified related conditions, unspecified trimester; R10.9 - Unspecified abdominal pain Status: Acute
== END 2021-01-31 15:28 | disposition home or self-care (01) ==
PROVIDERS: Admitting Provider Obstetrics & Gynecology; Visit Provider Obstetrics & Gynecology
DX: O26.893 Other specified pregnancy related conditions, third trimester (principal); R10.9 Unspecified abdominal pain; Z3A.32 32 weeks gestation of pregnancy
CPT/HCPCS: 81001; 87086; G0378; G0379

== ENCOUNTER 2021-02-01 16:05 | Observation (INO) | payer OTHER, SELFPAY ==
[2021-02-01 16:10] VITALS: RESP 20; TEMP 36.7
[2021-02-01 16:28] VITALS: BP 97/82; PULSE 98
[2021-02-01 16:31] VITALS: BP 113/75; PULSE 101
[2021-02-01] MEDS: LACTATED RINGERS 1,000 ML 999 ML IV CONT (16:32)
--- NOTE | 2021-02-03 16:26 | PM.OBTRLD ---
OB - Triage/Final Diagnosis Visit Information Comments/Additional reasons for admission: I have assessed the risk for this patient, Kirsten Condon, and determined that she would benefit from observation care. Final Diagnosis (1) Abdominal pain affecting : Code(s): O26.899 - Other specified related conditions, unspecified trimester; R10.9 - Unspecified abdominal pain Status: Acute
== END 2021-02-01 18:21 | disposition home or self-care (01) ==
PROVIDERS: Admitting Provider Obstetrics & Gynecology; Visit Provider Obstetrics & Gynecology
DX: O26.893 Other specified pregnancy related conditions, third trimester (principal); R10.9 Unspecified abdominal pain; Z3A.32 32 weeks gestation of pregnancy
CPT/HCPCS: 96360; G0378; G0379; J7120

== ENCOUNTER 2021-03-08 20:45 | Outpatient (CLI) | payer OTHER, SELFPAY | END 2021-03-08 21:34 | disposition home or self-care (01) | LOC: ANHOBOP 21:30 | PROVIDERS: Visit Provider Obstetrics & Gynecology | DX: O41.8X90 Other specified disorders of amniotic fluid and membranes, unspecified trimester, not applicable or unspecified (principal); Z3A.00 Weeks of gestation of pregnancy not specified | CPT/HCPCS: 84112 ==

== ENCOUNTER 2021-03-12 10:37 | Outpatient (RCR) | payer OTHER, SELFPAY ==
--- NOTE | ~2021-03-12 | US_ITS ---
EXAMINATION: US OB BPP wo non-stress EXAM DATE: 03/12/2021 11:55 INDICATION: Small for gestational age. 3rd trimester. TECHNIQUE: Pelvic obstetrical transabdominal sonogram was performed by a technologist. There are mu ltiple grayscale and Doppler images available for interpretation. Comparison is made to prior examina tion from 03/09/2021. FINDINGS: There is a single fetus identified in vertex presentation with a heart rate of 148 beats pe r minute. The placenta is located in the posterior position. There is no sonographic evidence of ret roplacental hemorrhage identified. There is subjectively expected amount of amniotic fluid. BIOPHYSICAL PROFILE (performed by the technologist) breathing (30 sec sustained breathing in 30 minutes): 2 out of 2 movement (3 gross body movements in 30 minutes): 2 out of 2 tone (one episode of [id number]-bjmmbny limb movement): 2 out of 2 Amniotic fluid pocket (2 cm): 2 out of 2 Total score: 8 out of 8 IMPRESSION: 1. Single fetus with heart rate of 148 bpm. 2. Normal biophysical profile score of 8 out of 8. Reviewed, dictated and finalized at location B. E REGISTRY RN
[2021-03-12 12:12] VITALS: BP 118/86; PULSE 105
== END 2021-03-12 12:15 | disposition home or self-care (01) ==
LOC: ANHOBOP 10:37
PROVIDERS: Visit Provider Obstetrics & Gynecology
DX: O36.5930 Maternal care for other known or suspected poor fetal growth, third trimester, not applicable or unspecified (principal); Z3A.37 37 weeks gestation of pregnancy
CPT/HCPCS: 59025; 76819

== ENCOUNTER 2021-03-13 16:08 | Inpatient (IN) | payer OTHER, SELFPAY ==
[2021-03-13] VITALS (13 sets, daily range): BP systolic 89–119; BP diastolic 60–78; PULSE 86–103; TEMP 36.4–36.9; BMI 26.2
--- NOTE | 2021-03-13 16:08 | LDADM ---
This patient, Kirsten Condon, was admitted to Labor/Delivery/Recovery 107 on 03/13/21 at 16:08. Plans for labor, pain management and were discussed with patient. Patient/family oriented to hospital policies and general routines including ID bracelet, bed and alarms, visiting hours, pain management, procedures, bathroom and other care routines, personal items, smoking policy, room service/diet and guest tray routines, security routines, and visiting hours. Patient/Family are encouraged to report perceived risks to care and to ask questions if they do not understand what they are told or what they should do. See OBIX for further documentation.
[2021-03-13 16:56] LABS: Basophils Percent Auto 0.2 % (0.2-1.2); Eosinophils Percent Auto 0.3 % (0-4.4); Hematocrit 30.9 % (37.0-47.0); Immature Granulocyte Absolute 0.05 K/mm3 (0.00-0.031); Immature Granulocyte Percent A 0.4 % (0-0.5); Lymphocytes Absolute Auto 2.23 K/mm3 (0.9-3.2); Lymphocytes Percent Auto 17.7 % (18.3-44.2); Mean Corpuscular HGB Conc 32.4 g/dl (32-36); Mean Corpuscular Hemoglobin 23.9 pg (26-34); Mean Corpuscular Volume 73.7 fl (80-100); Mean Platelet Volume 11.3 fl (7.4-10.4); Monocytes Absolute Auto 0.6 K/mm3 (0.1-0.6); Monocytes Percent Auto 4.5 % (2.6-8.5); Neutrophils Absolute Auto 9.7 K/mm3 (1.3-6.7); Neutrophils Percent Auto 76.9 % (45.5-73.1); Platelet Count Result 203 k/mm3 (150-375); Red Blood Count 4.19 M/mm3 (4.2-5.4); Red Cell Distribution Width 13.4 % (11.5-14.5); White Blood Count 12.6 K/mm3 (4.5-10.0)
[2021-03-13] MEDS: DINOPROSTONE 10 MG VAG INSERT VAGINAL (17:23)
[2021-03-13 18:43] LABS: Amphetamine Screen Urine Negative (Negative); Barbiturate Screen Urine Negative (Negative); Benzodiazepines Screen Urine Negative (Negative); Cannabinoid Screen Urine Positive (Negative); Cocaine Screen Urine Negative (Negative); Methadone Screen Urine Negative (Negative); Opiate Screen Urine Negative (Negative); Phencyclidine Screen Urine Negative (Negative)
[2021-03-14] VITALS (127 sets, daily range): BP systolic 86–136; BP diastolic 55–91; PULSE 57–133; RESP 16–18; TEMP 36.4–37.2; O2SAT 98–100
[2021-03-14] MEDS: fentaNYL CITRATE INJ (*CRX) 100 MCG/2 ML VIAL 50 MCG IV PUSH ×2 (02:03→03:42)
[2021-03-14] MEDS: AMPICILLIN 1 GM/NS 50 ML 1 GM/50 ML BAG IVPB ×2 (05:49→09:50)
[2021-03-14] MEDS: LACTATED RINGERS 1,000 ML 125 ML IV CONT ×2 (05:49→06:54)
--- NOTE | 2021-03-14 06:31 | WPDANESEPP ---
Anes - Eval Pre Procedure Procedure: labor epidural Date/Time: 03/14/21 06:31 Surgeon: leanne Preop Diagnosis: pain during labor Pre Op Diagnosis: Induction of Labor Patient Data Age: 20 Gender: F Height: 1.6 m Weight: 67 kg Last Vital Signs Temp 36.4 C 03/14/21 05:56 Pulse 88 03/14/21 06:16 Resp 16 03/14/21 05:56 BP 125/83 03/14/21 06:16 Pulse Ox 100 03/14/21 05:20 Allergies Allergy/AdvReac Type Severity Reaction Status Date / Time No Known Allergies Allergy Unknown Verified 03/12/21 09:58 Home Medications Medication Instructions Recorded Confirmed Type Gummies 400 tablet PO DAILY 08/21/20 03/13/21 History Laboratory Tests 03/13/21 03/13/21 03/13/21 16:50 16:50 16:50 WBC 12.6 K/mm3 H K/mm3 (4.5-10.0) RBC 4.19 M/mm3 L M/mm3 (4.2-5.4) Hgb 10.0 g/dL L g/dL (12.0-15.0) Hct 30.9 % L % (37.0-47.0) MCV 73.7 fl L fl (80-100) MCH 23.9 pg L pg (26-34) MCHC 32.4 g/dl g/dl (32-36) RDW 13.4 % % (11.5-14.5) Plt Count 203 k/mm3 k/mm3 (150-375) MPV 11.3 fl H fl (7.4-10.4) Immature Gran % (Auto) 0.4 % % (0-0.5) Neut % (Auto) 76.9 % H % (45.5-73.1) Lymph % (Auto) 17.7 % L % (18.3-44.2) Perkins % (Auto) 4.5 % % (2.6-8.5) Eos % (Auto) 0.3 % % (0-4.4) Baso % (Auto) 0.2 % % (0.2-1.2) Lymph # (Auto) 2.23 K/mm3 K/mm3 (0.9-3.2) Perkins # (Auto) 0.6 K/mm3 K/mm3 (0.1-0.6) Eos # (Auto) 0.0 K/mm3 K/mm3 (0-0.3) Baso # (Auto) 0.0 K/mm3 K/mm3 (0.0-0.1) Abs Immat Gran (auto) 0.05 K/mm3 H K/mm3 (0.00-0.031) Absolute Neuts (auto) 9.7 K/mm3 H K/mm3 (1.3-6.7) Absolute Nucleated RBC 0.0 K/mm3 K/mm3 (0.0-0.012) Nucleated RBC % 0.0 % % (0.0-0.2) Urine Opiates Screen Urine Methadone Screen Ur Barbiturates Screen Ur Phencyclidine Scrn Ur Amphetamine Screen U Benzodiazepines Scrn Urine Cocaine Screen U Cannabinoids Screen RPR Pending Blood Type A Positive Antibody Screen Negative 03/13/21 18:04 WBC RBC Hgb Hct MCV MCH MCHC RDW Plt Count MPV Immature Gran % (Auto) Neut % (Auto) Lymph % (Auto) Perkins % (Auto) Eos % (Auto) Baso % (Auto) Lymph # (Auto) Perkins # (Auto) Eos # (Auto) Baso # (Auto) Abs Immat Gran (auto) Absolute Neuts (auto) Absolute Nucleated RBC Nucleated RBC % Urine Opiates Screen Negative (Negative) Urine Methadone Screen Negative (Negative) Ur Barbiturates Screen Negative (Negative) Ur Phencyclidine Scrn Negative (Negative) Ur Amphetamine Screen Negative (Negative) U Benzodiazepines Scrn Negative (Negative) Urine Cocaine Screen Negative (Negative) U Cannabinoids Screen Positive A (Negative) RPR Blood Type Antibody Screen Patient hx anesthesia problems: none Family hx anesthesia problems: none Results Review: All pre-operative results and documents have been reviewed as part of the pre-operative evaluation. [facility] Past Medical History Medical History (Updated 03/14/21 @ 06:32 by Arpita Somers CRNA) Nicotine dependence due to vaping tobacco product Urinary tract infection Surgical History Surgical History (Updated 03/02/21 @ 14:24 by Malaika Mantilla Serenity) History of gynecological procedure (03/20/20) mirena iud removal History of gynecological procedure (05/25/18) mirena iud insertion History of tympanostomy tube placement Family History Family History (Updated 03/02/21 @ 14:26 by Evert Dawson RN) Father Diabetes mellitus Seizure dis
[2021-03-14] MEDS: ONDANSETRON INJ 4 MG/2 ML VIAL IV PUSH (07:21)
--- NOTE | 2021-03-14 11:11 | PM.OBPRVD ---
OB - Delivery Note Procedure events: Placental Insufficiency Induction method: per pitocin protocol and per cervidil protocol Delivery augmentation: rupture of membranes Delivery monitor: external FHT Route of delivery: Episiotomy description: None Laceration Description: Periurethral Specimen: Yes Quantitative Blood Loss (ml): 300 Anesthesia type: Epidural Disposition: floor Narrative: Patient prepped and draped in usual manner for this procedure. Maternal expulsive efforts readily delivered vertex of the rest baby without difficulty. Placenta then delivered without difficulty. Cervix vagina vulva were inspected with minimal periurethral lacerations noted. Uterus was well contracted and bleeding was minimal. [place] Baby Weeks of gestation at delivery: 38 Infant gender: Female Weight (pounds): 5 Weight (ounces): 15 presentation: vertex Placenta delivery description: Spontaneous score one minute: 9 score five minutes: 9 AMG Delivery Billing Delivery Delivery: Delivery Charge
--- NOTE | 2021-03-14 11:13 | WPDHPUPDATE1 ---
History and Physical Update Update Date/Time: 03/14/21 11:13 History and Physical has been reviewed, including an updated exam of the patient. There are NO changes in the patient's condition. Risks, benefits, and alternatives have been discussed and questions answered. Patient agrees to proceed with procedure.
--- NOTE | 2021-03-14 11:14 | WPDOBADMIT ---
Obstetrics - Admit Note Admission Note: record reviewed. No pertinent additions to the history and/or any subsequent changes in the physical findings that are not consistent with the expected course of the were found. Additions to the history and/or subsequent changes in the physical findings follow. None.
[2021-03-14] MEDS: OXYTOCIN 30 UNITS/NS 500 ML 30 UNITS/500 ML BAG 125 UNITS IV CONT (11:40)
[2021-03-14] MEDS: WITCH HAZEL 40 PADS 1 PAD TOPICAL ×2 (13:20→14:32)
[2021-03-14] MEDS: BENZOCAINE 20% AER SPR (*SP) 56 GM CAN 1 SPRAY TOPICAL ×2 (13:20→14:32)
--- NOTE | 2021-03-14 14:00 | PC.NURSE ---
Patient transferred to post room #282 via wheelchair. Support person present. Oriented to unit, room, information board, rooming in, admission packet and security measures. Patient verbalizes understanding.
[2021-03-14] MEDS: IBUPROFEN 600 MG TABLET PO (14:33)
[2021-03-14] MEDS: ACETAMINOPHEN 325 MG TABLET 650 MG PO (21:40)
[2021-03-15 00:10] VITALS: BP 107/60; PULSE 71; RESP 18; TEMP 36.4; O2SAT 100
[2021-03-15] MEDS: ACETAMINOPHEN 325 MG TABLET 650 MG PO (03:14)
[2021-03-15 04:00] VITALS: BP 113/71; PULSE 62; RESP 18; TEMP 36.5; O2SAT 100
[2021-03-15 08:15] VITALS: BP 117/80; PULSE 63; RESP 18; TEMP 36.4; O2SAT 100
[2021-03-15] MEDS: POLYSACCHARIDE IRON COMPLEX 150 MG CAPSULE PO ×2 (08:42→15:48)
[2021-03-15] MEDS: DOCUSATE SODIUM 100 MG CAPSULE PO ×2 (08:43→15:50)
[2021-03-15] MEDS: MULTIVIT/MIN/PREN/FOL AC/IRON TABLET 1 TAB PO (08:43)
[2021-03-15] MEDS: IBUPROFEN 600 MG TABLET PO ×2 (08:44→15:49)
[2021-03-15] MEDS: TETANUS,DIPHTHERIA,AC PERTUSSIS ADULT (0.5 ML) BOOSTRIX IM (08:44)
[2021-03-15 09:54] LABS: Hematocrit 28.1 % (37.0-47.0); Hemoglobin 8.7 g/dL (12.0-15.0)
--- NOTE | 2021-03-15 12:34 | PM.OBDSVD ---
DS: Admitting Diagnosis Discharge Date 03/16/2021 Admitting Diagnosis OB - DS: Summary OB Procedures : None OB Procedures Intrapartum: Spontaneous Vag Delivery OB Procedures: : None Time Spent with Patient Time attestation: Total time spent providing and/or coordinating discharge services: DS: Data Data Completed and Pending Pending studies at discharge: Pending at discharge 03/14/21 11:04 Surgical [PTH] Routine Labs on day of discharge: Labs from last 24 hours 03/15/21 05:45 Hgb 8.7 L Hct 28.1 L Discharge Plan Discharge Discharging Clinician: Nimesh Burks Patient Disposition: Home, Self-Care Activity: as tolerated Diet: as tolerated Patient Instructions: Antibiotic Form Stand Alone Forms: General Discharge Information Follow-up/Referrals: Nimesh Burks MD [Physician] - Discharge Medications: New ibuprofen 600 mg Tablet 600 mg PO Q6H PRN (Reason: Cramping) Qty: 30 RF: 0 Continued Gummies 400 mcg-35 mg- 25 mg-5 mg Tablet,Chewable 400 tablet PO DAILY RF: 0 Date of admission: 03/13/21 16:08 Primary Care Provider: PHYSICIAN,ONLINE SERVICES MANAGER Admitting Provider: Fatou Nelson Attending physician on admission: Fatou Nelson Condition: Stable
--- NOTE | 2021-03-15 14:40 | WPDANLDPN2 ---
Anes-Prog Note L&D Date/Time: 03/15/21 14:40 Comfortable throughout: labor and delivery Neuraxial method: epidural Epidural/Spinal procedure site: clean & non-tender Neuro status: Neuro function grossly intact. Cardiovascular status: normal Respiratory status: normal Airway patency: baseline Mental status: baseline Post-Op hydration status: normal Vital Signs: Last Vital Signs Temp 97.6 F 03/15/21 08:15 Pulse 63 03/15/21 08:15 Resp 18 03/15/21 08:15 BP 117/80 03/15/21 08:15 Pulse Ox 100 03/15/21 08:15 Pain score (VAS): 0 Post-procedural complaints: none Patient feedback: Patient satisfied with anesthetic care.
[2021-03-15 20:10] VITALS: BP 111/76; PULSE 87; RESP 16; TEMP 36.1; O2SAT 100
[2021-03-16 08:00] VITALS: BP 122/78; PULSE 70; RESP 16; TEMP 37.1; O2SAT 100
[2021-03-16 08:30] VITALS: PULSE 70; RESP 16; O2SAT 100
[2021-03-16] MEDS: DOCUSATE SODIUM 100 MG CAPSULE PO (08:39)
[2021-03-16] MEDS: WITCH HAZEL 40 PADS 1 PAD TOPICAL (08:40)
[2021-03-16] MEDS: BENZOCAINE 20% AER SPR (*SP) 56 GM CAN 1 SPRAY TOPICAL (08:40)
[2021-03-16] MEDS: IBUPROFEN 600 MG TABLET PO (08:40)
[2021-03-16] MEDS: MULTIVIT/MIN/PREN/FOL AC/IRON TABLET 1 TAB PO (08:40)
[2021-03-16] MEDS: POLYSACCHARIDE IRON COMPLEX 150 MG CAPSULE PO (08:40)
[2021-03-16 10:55] LABS: Rapid Plasma Reagin Non-Reactive (NonReactive)
--- NOTE | 2021-03-16 10:58 | PM.OBPRVD ---
OB - Delivery Note Procedure events: Placental Insufficiency Intrapartal events: Hypotonic Dysfunction, Hypertonic Dysfunction, Ineffective Pushing, Precipitous Labor < 3 hours, Prolonged Labor > 20 hours, Prolonged Latent Phase, Prolonged Active Phase, Prolonged 2nd Stage > 2.5 hours, Febrile, Bleeding, Mild Preeclampsia, Severe Preeclampsia, Seizure Activity, Placenta Previa, Abruptio Placenta, Ceph-Pelvic Disproportion, Cord Prolapse, Extended Bradycardia, Extended Tachycardia, Anesthetic Complications, Born Out of Hospital, Chorioamnionitis, Intolerance, HELLP Syndrome, Uterine Rupture, Abnormal Labs, Failure to Progress in Labor, Hydramnios, Multiple Gestation, Abnormal Presentation, Diabetes, Acceleration, Deceleration, Sexually Transmitted Infection and Gestational Term Greater Than 42 Weeks Anesthesia type: Epidural Baby Weeks of gestation at delivery: 38 gender: Female Weight (pounds): 5 Weight (ounces): 15 presentation: vertex Placenta delivery description: Spontaneous score one minute: 9 score five minutes: 9
--- NOTE | 2021-03-16 11:02 | PCCCNOTE ---
Care Coordination Note: Met with pt. today. Pt. reports she lives at home with GILMA Nath. This is their first child. She lives at home with Tieler and his family. They have all necessary supplies for the baby at home including a crib, car seat, clothing, diapers etc. Pt. plans to breast feed. Pt. reports she smokes marijuana recreationally, does not have a reliance on marijuana. Denies any other substance use. Plans to breastfeed baby at discharge, reports she has spoken to the wood heel attacher about this. resources provided. Pt. has information if she would like to sign up for [facility] services at discharge. Denies any other case management needs. Completed online DCFS report, [id number].
--- NOTE | 2021-03-16 15:36 | PC.NURSE ---
0920 - Mother verbalizes she is able to independently latch with appropriate positioning/alignment. She denies any nipple discomfort, is feeding as required and waking infant to feed if needed. is currently meeting outcomes for weight, output, jaundice and feeding frequencies. Mother states she does not require feeding assist/education at this time. Reviewed resources in the Mom/Baby guide. Instructed mother to call out for future feedings if assistance is needed.
--- NOTE | 2021-03-16 15:39 | PC.NURSE ---
0930 - latch assessed. Encouraged mother to practice effective latch and she voiced understanding what the looks and feels like. was able to maintain latch and occasional swallowing visualized. Mother verbalizes she is able to independently latch with appropriate positioning/alignment. She denies any nipple discomfort, is feeding as required and waking to feed if needed. has had 11 feedings in the past 24 hours mixing and bottle feeding. Infant is currently meeting outcomes for weight, output, jaundice and feeding frequencies. Mother states she feels confident to continue effective at home. Reviewed transition to breast milk, signs of adequate intake, and engorgement/relief. Instructed to call ICP if intake/output less than required as reviewed using the mom and baby guide. Reviewed community resources/out patient services in the Mom/Baby guide. Mother has no further questions at this time.
--- NOTE | 2021-03-17 11:07 | PM.OBDSVD ---
DS: Admitting Diagnosis Discharge Date 03/16/21 Admitting Diagnosis OB - DS: Summary OB Procedures : None OB Procedures Intrapartum: Spontaneous Vag Delivery OB Procedures: : None Time Spent with Patient Time attestation: Total time spent providing and/or coordinating discharge services: DS: Data Data Completed and Pending Pending studies at discharge: Pending at discharge 03/14/21 11:04 Surgical [PTH] Routine Discharge Plan Discharge Discharging Clinician: Nimesh Burks Patient Disposition: Home, Self-Care Activity: as tolerated Diet: as tolerated Discharge Instructions: Education: Mom and Baby Guide Given to: Mother Follow-Up: Call your delivering provider's office for an appointment to be seen in: 4 Weeks Mom and baby [facility] for the follow-up appointment. Appointment Date/Time: March 17, 2021 at 11:00 am What to expect at your follow-up visit: Blood Pressure Check Physical Assessment Call [phone] if you are unable to keep your appointment time. BREAST CARE: * Wear a snug supportive bra. * For engorgement discomfort: Breast Feeding: * Apply warm moist washcloths * Express milk as needed to relieve engorgement * Wear loose clothing * For sore nipples: * Identify correct latch-on * Apply warm moist washcloths before and after nursing * Air dry nipples after nursing * May apply Lansinoh cream to nipples EPISIOTOMY/PERINEAL CARE: * Until bleeding stops, use your jerardo bottle after urinating * Change your pad frequently throughout the day * You may take sitz baths several times a day (fill your bathtub with warm water and soak for 20 minutes.) Do NOT bathe in the water * No tub baths until seen by your physician - You may shower ACTIVITY: * Rest as much as possible. * Do not exercise or lift anything heavier than your baby (such as laundry or other children.) * Avoid stairs or driving as much as possible. * Do not put anything into the vagina. No douching, tampons, or sexual activity until seen by physician. NOTIFY PHYSICIAN IF YOU HAVE ANY QUESTIONS OR IF ANY OF THE FOLLOWING SYMPTOMS OCCUR: * If your vaginal area becomes red, swollen, or more painful than what you have experienced in the hospital. * If your vaginal bleeding becomes foul smelling. * If your vaginal bleeding becomes more heavy than a period or if your bleeding changes from the color it is now to bright crayon red . However, you may pass an occasional walnut-sized clot once or twice for the first week . * If you experience a sharp, shooting pain in your calves. * If you discover a hard, reddened area on your breast or if you experience flu-like symptoms. DIET: * Eat regular, well-balanced meals. * Drink plenty of fluids daily. If , drink to thirst. Patient Instructions: Vaginal Delivery (DC) Stand Alone Forms: General Discharge Information Follow-up/Referrals: Nimesh Burks MD [Physician] - Discharge Medications: New ibuprofen 600 mg Tablet 600 mg PO Q6H PRN (Reason: Cramping) Qty: 30 RF: 0 Continued Gummies 400 mcg-35 mg- 25 mg-5 mg Tablet,Chewable 400 tablet PO DAILY RF: 0 Date of admission: 03/13/21 16:08 Primary Care Provider: PHYSICIAN,LOW PRESSURE FIRER Admitting Provider: Nimesh Burks Attending physician on admission: Nimesh Burks Condition: Stable
--- NOTE | 2021-03-17 15:16 | P.DS_ITS ---
DS: Admitting Diagnosis Discharge Date 03/16/21 Admitting Diagnosis OB - DS: Summary OB Procedures : None OB Procedures Intrapartum: Spontaneous Vag Delivery OB Procedures: : None Time Spent with Patient Time attestation: Total time spent providing and/or coordinating discharge services: DS: Data Data Completed and Pending Pending studies at discharge: Pending at discharge 03/14/21 11:04 Surgical [PTH] Routine Discharge Plan Discharge Discharging Clinician: Nimesh Bursk Patient Disposition: Home, Self-Care Activity: as tolerated Diet: as tolerated Discharge Instructions: Education: Mom and Baby Guide Given to: Mother Follow-Up: Call your delivering provider's office for an appointment to be seen in: 4 Weeks Mom and baby [facility] the follow-up appointment. Appointment Date/Time: March 17, 2021 at 11:00 am What to expect at your follow-up visit: Blood Pressure Check Physical Assessment Call [phone] if you are unable to keep your appointment time. BREAST CARE: * Wear a snug supportive bra. * For engorgement discomfort: Breast Feeding: * Apply warm moist washcloths * Express milk as needed to relieve engorgement * Wear loose clothing * For sore nipples: * Identify correct latch-on * Apply warm moist washcloths before and after nursing * Air dry nipples after nursing * May apply Lansinoh cream to nipples EPISIOTOMY/PERINEAL CARE: * Until bleeding stops, use your jerardo bottle after urinating * Change your pad frequently throughout the day * You may take sitz baths several times a day (fill your bathtub with warm water and soak for 20 minutes.) Do NOT bathe in the water * No tub baths until seen by your physician - You may shower ACTIVITY: * Rest as much as possible. * Do not exercise or lift anything heavier than your baby (such as laundry or other children.) * Avoid stairs or driving as much as possible. * Do not put anything into the vagina. No douching, tampons, or sexual activity until seen by physician. NOTIFY PHYSICIAN IF YOU HAVE ANY QUESTIONS OR IF ANY OF THE FOLLOWING SYMPTOMS OCCUR: * If your vaginal area becomes red, swollen, or more painful than what you have experienced in the hospital. * If your vaginal bleeding becomes foul smelling. * If your vaginal bleeding becomes more heavy than a period or if your bleeding changes from the color it is now to bright crayon red . However, you may pass an occasional walnut-sized clot once or twice for the first week . * If you experience a sharp, shooting pain in your calves. * If you discover a hard, reddened area on your breast or if you experience flu- like symptoms. DIET: * Eat regular, well-balanced meals. * Drink plenty of fluids daily. If , drink to thirst. Patient Instructions: Vaginal Delivery (DC) Stand Alone Forms: General Discharge Information Follow-up/Referrals: Nimesh Burks MD [Physician] - Discharge Medications: New ibuprofen 600 mg Tablet 600 mg PO Q6H PRN (Reason: Cramping) Qty: 30 RF: 0 Continued Gummies 400 mcg-35 mg- 25 mg-5 mg Tablet,Chewable 400 tablet PO DAILY RF: 0 Date of admission: 03/13/21 16:08 Primary Care Provider: PHYSICIAN,MOTORCYCLE RACER Admitting Provider: Nhan
== END 2021-03-16 13:53 | disposition home or self-care (01) | DRG 560 ==
LOC: ANHOB2 03-16 10:54 → ANHLDR 03-17 09:17 → ANHOB2 03-17 09:17
PROVIDERS: Admitting Provider Obstetrics & Gynecology; Visit Provider Obstetrics & Gynecology
DX: O36.5130 Maternal care for known or suspected placental insufficiency, third trimester, not applicable or unspecified (principal); Z23 Encounter for immunization; O71.82 Other specified trauma to perineum and vulva; O99.824 Streptococcus B carrier state complicating childbirth; O36.5930 Maternal care for other known or suspected poor fetal growth, third trimester, not applicable or unspecified; O76 Abnormality in fetal heart rate and rhythm complicating labor and delivery; Z3A.38 38 weeks gestation of pregnancy; Z37.0 Single live birth
CPT/HCPCS: 36415; 80307; 85014; 85018; 85025; 86592; 86850; 86900; 86901; 88307; 90715; A9270; J0290; J2405; J2590; J2795; J3010; J7120

== ENCOUNTER 2021-04-24 11:22 | Emergency (ER) | payer OTHER, SELFPAY ==
--- NOTE | ~2021-04-24 | CT_ITS ---
EXAMINATION: CT abdomen pelvis w con DATE: 04/24/2021 13:35 INDICATION: Left flank pain, dysuria TECHNIQUE: Computed tomography (CT) of the abdomen and pelvis was performed with 100 CC Omnipaque 350 intravenous contrast. Automated exposure control and iterative reconstruction technique were employe d. Exam dose: 305.55 mGy-cm total exam DLP. COMPARISON: 05/09/2020 CT abdomen pelvis FINDINGS: Right lower lobe calcified pulmonary granuloma. No infiltrate or consolidation at the lung bases. Normal heart size. No pericardial or pleural effusion. The liver, gallbladder, bile ducts, pancreas and pancreatic duct are unremarkable. Spleen is within upper normal limits of size. Normal morphology of the adrenal glands. There is inhomogeneous enhancement of the left kidney including approximately 12 x 20 mm wedge shaped area of diminished enhancement in the posterior mid right kidney. There is inhomogeneous enhancement of the right kidney as well. Consider bilateral acute pyelonephritis. No apparent urinary tract calculus or hydroureteronephrosis is noted. Noncontrast CT examination woul d be more sensitive for detection of urinary tract stones. The uterus and urinary bladder and left ovary are unremarkable. There are 2 right ovarian cysts measu ring up to 2.5 and 2.1 cm approximate maximal dimension. No pelvic free fluid collection is noted. Normal caliber of the abdominal aorta. No intraperitoneal or retroperitoneal or pelvic mass lesion or adenopathy or ascites. No bowel obstruction or intraperitoneal free air. Small fat-containing umbilical hernia. Included skeletal structures are unremarkable. IMPRESSION: Acute pyelonephritis of left kidney and probable right kidney as well Reviewed, dictated and finalized at [facility] Reviewed, dictated and finalized at [facility]. TRANSMISSION SPECIALIST IMPRESSION: Acute pyelonephritis of left kidney and probable right kidney as w ell
[2021-04-24 11:27] VITALS: BP 116/84; PULSE 115; RESP 20; TEMP 37.5; O2SAT 100
[2021-04-24 12:10] LABS: Basophils Percent Auto 0.2 % (0.2-1.2); Eosinophils Percent Auto 0.2 % (0-4.4); Hematocrit 37.9 % (37.0-47.0); Hemoglobin 11.7 g/dL (12.0-15.0); Immature Granulocyte Absolute 0.03 K/mm3 (0.00-0.031); Immature Granulocyte Percent A 0.3 % (0-0.5); Lymphocytes Absolute Auto 1.38 K/mm3 (0.9-3.2); Lymphocytes Percent Auto 15.3 % (18.3-44.2); Mean Corpuscular HGB Conc 30.9 g/dl (32-36); Mean Corpuscular Hemoglobin 23.4 pg (26-34); Mean Platelet Volume 9.9 fl (7.4-10.4); Monocytes Absolute Auto 0.8 K/mm3 (0.1-0.6); Monocytes Percent Auto 8.4 % (2.6-8.5); Neutrophils Absolute Auto 6.8 K/mm3 (1.3-6.7); Neutrophils Percent Auto 75.6 % (45.5-73.1); Platelet Count Result 220 k/mm3 (150-375); Red Blood Count 4.99 M/mm3 (4.2-5.4); Red Cell Distribution Width 17.2 % (11.5-14.5)
[2021-04-24 12:15] LABS: Add Urine Microscopic? YES; Appearance Urine Cloudy (Clear); Bacteria Urine 1+ /hpf; Bilirubin Urine Negative (Negative); Blood Urine 1+ (Negative); Color Urine Yellow (Yellow); Glucose Urine UA Negative (Negative); Ketones Urine Trace mg/dL (Negative); Leukocyte Esterase Ur 2+ LEU/UL (Negative); Mucus Urine Rare /lpf; Nitrate Urine Negative (Negative); Protein Urine Negative (Negative); Specific Grav Ur 1.017 (1.001-1.035); Squamous Epithelial Cell Urine Many /hpf (Few); Urobilinogen Urine Negative mg/dL (<2.0); WBC Urine 31-50 /hpf
--- NOTE | 2021-04-24 12:16 | ED.ABDPAIN ---
HPI - Abdominal Pain General Chief Complaint: Abdominal Pain Stated Complaint: Left Flank Pain Time Seen by Provider: 04/24/21 11:57 Source: patient History of Present Illness HPI narrative: Patient presents with left flank pain and pain with urination. Reports been going on since yesterday has been associated with nausea but no vomiting. Pain is achy, constant, worse with moving around, no radiation. Reports pain with urination denies any vaginal bleeding or discharge. Denies any diarrhea. Related Data Allergies Allergy/AdvReac Type Severity Reaction Status Date / Time No Known Allergies Allergy Unknown Verified 04/23/21 15:49 Review of Systems Review of Systems: CONSTITUTIONAL: Denies fever, chills, or sweats. EYES: Denies visual changes, redness, or discharge. ENT: Denies rhinorrhea, congestion, sore throat, or otalgia. CARDIOVASCULAR: Denies chest pain, palpitations, or edema. RESPIRATORY: Denies cough or dyspnea. GASTROINTESTINAL: Denies vomiting, or diarrhea. GENITOURINARY: Reports dysuria SKIN: Denies rash or itching. MUSCULOSKELETAL: Denies joint pain, or myalgia. NEUROLOGIC: Denies headache, numbness, dizziness, or weakness. PSYCHIATRIC: Denies anxiety or depression. All systems reviewed & are unremarkable except as noted in HPI and below PMFSH Past Medical History Medical History Nicotine dependence due to vaping tobacco product Urinary tract infection Surgical History Surgical History History of gynecological procedure (03/20/20) mirena iud removal History of gynecological procedure (05/25/18) mirena iud insertion History of tympanostomy tube placement Family History Family History Father Diabetes mellitus Seizure disorder Sibling Autism Grandparent Ovarian cancer Social History Social History Social History: Surrogate decision maker: Pham Scruggs, significant other. Code status: Full code. Smoking status: Former smoker Tobacco type: cigarettes Second hand tobacco smoke exposure: Yes Alcohol intake: never Substance use: current Substance use type: marijuana Last use: Dec 2020 Additional living arrangements comments: Resides in [place] with her significant other and his child. Additional occupation/education comments: Not currently employed, ?[id number] step mother.? Gender identity (if verbalized by the patient): Female Sexual Orientation (if Verbalized by the Patient): Straight or Heterosexual Spiritual care concerns: No Exam Narrative: GENERAL: Well-appearing, well-nourished, and in no acute distress. HEAD: Normocephalic, atraumatic. EYES: PERRLA and EOMI. ENT: Nares clear, no rhinorrhea or epistaxis. Mucous membranes moist. NECK: Supple. No masses. No JVD CHEST: Clear to auscultation. No respiratory distress. No wheezes rales or rhonchi HEART: Regular rate and rhythm. No murmur heard. Normal peripheral pulses. ABDOMEN: Soft, mild tenderness with palpation suprapubic area nondistended BACK: No midline back pain CVA tenderness on the left EXTREMITIES: Normal range of motion. No edema. SKIN: Warm, dry, no rash. NEURO: No focal deficits. Alert and oriented x3. PSYCH: Normal mood and affect. Course Reevaluation(s) Reevaluation #1: Patient reports feeling much improved after supportive therapies. Results reviewed with patient. Discussed inpatient versus outpatient management of her symptoms given her improvement she refers a trial of outpatient therapies with no leukocytosis improvement in symptoms and p.o. tolerance this is a reasonable choice. Date: 04/24/21 Time: 14:27 Vital Signs Vital signs: Vital Signs Temperature 37.5 C 04/24/21 11:27 Pulse Rate 115 H 04/24/21 11:27 Respiratory Rate 20 04/24/21 11:27 Blood
[2021-04-24 12:19] LABS: Alanine Aminotransferase 14 U/L (4-35); Albumin Level 4.9 g/dL (3.5-5.1); Alkaline Phosphatase 111 U/L (38-126); Anion Gap 7 mmol/L (8-16); Aspartate Amino Transferase 32 U/L (14-36); Bilirubin,Total 0.5 mg/dL (0.2-1.3); Blood Urea Nitrogen 9 mg/dL (7-17); Calcium 9.1 mg/dL (8.4-10.2); Carbon Dioxide 25 mmol/L (22-30); Chloride 105 mmol/L (98-107); Estimated CRCL calculation 81 ml/min; Estimated Glomerular Filt Rate > 60; Glucose 95 mg/dL (65-110); Sodium 137 mmol/L (137-145)
[2021-04-24] MEDS: ONDANSETRON INJ 4 MG/2 ML VIAL IV PUSH (12:23)
[2021-04-24] MEDS: SODIUM CHLORIDE 0.9% IV 1,000 ML 999 ML IV CONT (12:24)
[2021-04-24] MEDS: KETOROLAC 15 MG/ML VIAL (*BKC) IV PUSH (13:52)
== END 2021-04-24 14:40 | disposition home or self-care (01) ==
PROVIDERS: General Practice; Emergency Provider Emergency Medicine
DX: N10 Acute pyelonephritis (principal); Z87.891 Personal history of nicotine dependence
CPT/HCPCS: 36415; 74177; 80053; 81001; 81025; 85025; 87077; 87086; 87088; 87186; 96361; 96365; 96375; 99284; J0696; J1885; J2405; J7030; Q9967

== ENCOUNTER 2022-02-05 12:30 | Emergency (ER) | payer OTHER, SELFPAY ==
[2022-02-05 12:40] VITALS: BP 126/65; PULSE 120; RESP 18; TEMP 37.4; O2SAT 99
[2022-02-05 15:10] VITALS: BP 119/77; PULSE 118; RESP 16; O2SAT 100
== END 2022-02-05 16:12 | disposition left against medical advice (07) ==
DX: R31.9 Hematuria, unspecified (principal)
CPT/HCPCS: 99199